=== PATIENT | female | born 1940 | race Caucasian/White ===

== ENCOUNTER 2023-04-25 13:10 | Outpatient (AMB) | payer MEDICARE, OTHER, SELFPAY ==
--- NOTE | 2023-04-25 13:12 | MHC.OFFVIS ---
Intake Vital Signs 04/25/23 13:13 Height 5 ft 2 in BMI Reason not done Patient refused/unable BP 128/76 Blood Pressure Location Rt brachial Position Sitting Pulse 75 Pulse Source Pulse Oximeter Temp 97.2 F Temp Source Skin Pulse Oximetry (%) 97 Comment stated weight is 170 lbs Intake Visit Reasons: inflammatory polyarthropathy Intake Note: New pt presents today for consult. Request renewal on prednisone 5mg Bosom Presser Required: No Accompanied by: Self / Same As Patient Allergies Penicillins Allergy (Severe, Verified 04/25/23 13:14) Anaphylaxis streptomycin Adverse Reaction (Verified 04/25/23 13:14) Rash Medication List - Last Reconciled 04/25/23 by Seven West MD bupropion HCl 300 mg PO DAILY citalopram 20 mg PO DAILY fluticasone propion-salmeterol 250-50 mcg/dose (Advair Diskus) 1 ea inhalation BID gabapentin 600 mg PO BEDTIME gabapentin 100 mg PO BEDTIME hydroxychloroquine 200 mg PO DAILY oxybutynin chloride ER 10 mg PO DAILY prednisone 5 mg PO DAILY HPI HPI Comments History of Present Illness Details This is in 82-year-old female with PMR/seronegative RA/GCA who presents as a new patient. Her previous sole tacker left the practice. She is currently on 5 mg of prednisone and hydroxychloroquine 1 tab daily. Patient stated that she has been having fatigue over the years but it has been worsening over the last 3 years. She was evaluated by an health and safety director 3 months ago and was told no change in medication is needed but was given instructions for stress dose steroids. She was recently evaluated by her PCP and numerous blood tests were ordered, according to patient it was all normal. Patient states that her main complaint is fatigue. Associated with morning stiffness lasting 90 minutes. She gets some pain in her hands, especially her wrists. Gets intermittent headaches. No vision change. Per Dr. 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 I do not have records of initial episode, but as I recall, she kept having recurrent symptoms and required much longer than usual prednisone taper.? At 1 point we tried methotrexate and tried Enbrel as a steroid sparing agents.?? She also has more recently had PMR like symptoms that have been steroid responsive.? She was on low doses of prednisone for a very long period of time.?? She tapered off prednisone entirely for about a year, but then May 2017 had a fairly abrupt onset of inflammatory for arthritis with hand and wrist pain and swelling with a component of acute carpal tunnel syndrome.?? Had prednisone and started leflunomide and seemed to do much better.?? Trouble tolerating leflunomide.? Plaquenil added back in December of 2018 When I saw her in 2018 she was complaining about 2 months of mostly left temporal headache and scalp sensitivity.? Gets sharp pain, then dull ache.? This was very reminiscent of onset of GCA years ago.? Also developed proximal symptoms with more than 1 hour of morning stiffness around hips and shoulder.? This too is very reminiscent of symptoms weight back at onset of her disease.? With recurring symptoms I thought we should consider adding Actemra and we went through the prior authorization process.? However she has been able to rapidly taper her prednisone to current 5 mg daily with full resolution of symptoms Had DEXA scan.? Hip-2.6.? Prior treatment with Fosamax for 2-3 years when on high doses of prednisone.? No Fosamax since 2010.?? Restart alendronate with ask 2019? She had successful ankle replacement.? Fully active [facility] Medical History (Updated 04/25/23 @ 13:58 by Seven West MD) Tendinitis Osteochondropathy Osteoporosis Polymyalgia rheumatica Degenerative joint disease of ankle Inflammatory polyarthropathy Rheumatoid arthritis Asthma Giant cell arteritis Iatrogenic adrenal insufficiency Surgical History History of ankle surgery Hx of appendectomy Hx of tubal ligation Hx of cholecystectomy H/O shoulder replacement History of bunionectomy Family History Mother Chronic obstructive lung disease, type A Father H/O failure to thrive syndrome Social History Household Members: Spouse Alcohol intake: current Alcohol intake frequency: a few times a month Patient Tobacco Use Status: Never used Tobacco Current occupational status: 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Const Reports fatigue ENT Reports dry mouth Card Reports dyspnea Resp Reports dyspnea GI Reports diarrhea Musc Reports arthralgias and Reports stiffness Skin/Breast Reports unusual bruising Psych Reports anxiety and Reports depression Endo Reports fatigue Physical Exam Vital Signs: Last Vital Signs Temp 97.2 F 04/25/23 13:13 Pulse 75 04/25/23 13:13 BP 128/76 04/25/23 13:13 Pulse Ox 97 04/25/23 13:13 Const General: cooperative, healthy appearing and comfortable Nutritional Appearance: overweight Orientation/consciousness: patient oriented x3 Limitations: no limitations HEENT Head: Yes normocephalic and Yes atraumatic Mouth: moist mucous membranes Resp Effort & Inspection: normal respiratory effort and able to speak in complete sentences Auscultation: clear to auscultation bilaterally Cardio Rate: regular rate Rhythm: regular rhythm Skin Other: Dry skin Neuro General: patient oriented x3 Extrem Other: Osteoarthritic changes of both hands with no active synovitis Right 1st CMC joint tenderness Normal range of motion of both elbows, shoulders without pain Normal range of motion of both hips without pain Negative straight leg raise test bilaterally Left trochanteric bursa area tenderness with negative Marlen's test Proximal muscle strength 5/5 all 4 extremities Results Reviewed Results Reviewed: Had DEXA scan.? Hip-2.6.? Prior treatment with Fosamax for 2-3 years when on high doses of prednisone.? No Fosamax since 2010.?? Restart alendronate? 2019? She had successful ankle replacement.? Fully active Labs 02/2022? ESR/CRP normal DEXA 05/20? Her T-score -0.8 at the forearm with no prior to compare? Her T-score at the right femoral neck was-2.3 and in 2019 was-2.6? Her FRAX data was not calculated Assessment & Plan Assessment & Plan (1) Polymyalgia rheumatica: Code(s): M35.3 - Polymyalgia rheumatica Plan: This is an 82-year-old female with GCA/PMR and seronegative rheumatoid arthritis who presents as a new patient. Her previous sole tacker left the practice. Per Dr. Toth patient's GCA was diagnosed clinically. Patient mentions that she had a left temporal artery biopsy and it was positive for GCA. Upon evaluation today I do not see any signs of active disease. Patient mentioned that she had numerous blood tests recently by her PCP. Will request records. For now continue with prednisone 5 mg daily and Plaquenil 200 mg daily Follow-up in 3 months (2) Iatrogenic adrenal insufficiency: Code(s): E27.49 - Other adrenocortical insufficiency Plan: Per patient was recently evaluated by an health and safety director and no change in prednisone dose was done, she was given instructions for stress steroid dosing however. Will request records (3) Osteoporosis: Code(s): M81.0 - Age-related osteoporosis without current pathological fracture Qualifiers: Osteoporosis type: age-related Presence of current pathological fracture: without current pathological fracture Qualified Code(s): M81.0 - Age-related osteoporosis without current pathological fracture Plan: DEXA 05/20? Her T-score -0.8 at the forearm with no prior to compare? Her T-score at the right femoral neck was-2.3 and in 2019 was-2.6? Her FRAX data was not calculated (4) Trochanteric bursitis, left hip: Code(s): M70.62 - Trochanteric bursitis, left hip Plan: Will consider injection next visit Plan I spent 46 minutes reviewing patient's chart, evaluating patient, counseling patient and documenting in the chart Coding Level of Care Code New Pt Level 4 (15054) Diagnoses Polymyalgia rheumatica M35.3 Iatrogenic adrenal insufficiency E27.49 Age-related osteoporosis without current pathological fracture M81.0 Osteoporosis type: age-related Presence of current pathological fracture: without current pathological fracture Trochanteric bursitis, left hip M70.62
[2023-04-25 13:13] VITALS: BP 128/76; PULSE 75; TEMP 36.2; O2SAT 97
== END 2023-04-25 13:47 | disposition home or self-care (01) ==
PROVIDERS: PCP Family Medicine; Visit Provider Student in an Organized Health Care Education/Training Program
DX: M35.3 Polymyalgia rheumatica (principal); E27.49 Other adrenocortical insufficiency; M81.0 Age-related osteoporosis without current pathological fracture; M70.62 Trochanteric bursitis, left hip
CPT/HCPCS: 99204

== ENCOUNTER → 2023-04-25 13:10 | Outpatient (BNVA) | payer MEDICARE, OTHER, SELFPAY | PROVIDERS: PCP Family Medicine; Visit Provider Student in an Organized Health Care Education/Training Program ==

== ENCOUNTER 2023-07-26 13:26 | Outpatient (AMB) | payer MEDICARE, OTHER, SELFPAY ==
--- NOTE | 2023-07-26 13:29 | MHC.OFFVIS ---
Intake Vital Signs 07/26/23 13:30 Height 5 ft 2 in BMI Reason not done Patient refused/unable BP 122/74 Blood Pressure Location Rt brachial Position Sitting Pulse 78 Pulse Source Pulse Oximeter Temp 97 F Temp Source Skin Comment 170lb at home this morning Intake Visit Reasons: PMR Intake Note: Pt last seen 04/25/23 presents today for follow up. c/o left hip pain Bond Underwriter Required: No Accompanied by: Spouse Allergies Penicillins Allergy (Severe, Verified 07/26/23 13:40) Anaphylaxis streptomycin Adverse Reaction (Verified 07/26/23 13:40) Rash Medication List - Last Reconciled 07/26/23 by Seven West MD bupropion HCl 300 mg PO DAILY citalopram 20 mg PO DAILY fluticasone propion-salmeterol 250-50 mcg/dose (Advair Diskus) 1 ea inhalation BID gabapentin 600 mg PO BEDTIME gabapentin 100 mg PO BEDTIME hydroxychloroquine 200 mg PO DAILY oxybutynin chloride ER 10 mg PO DAILY prednisone 5 mg PO DAILY HPI HPI Comments History of Present Illness Details This is in 82-year-old female with PMR/seronegative RA/GCA who presents for follow-up. On prednisone 5 mg daily and hydroxychloroquine 200 mg daily. She states that she has been doing well until early May 31 her fell and had subarachnoid hemorrhage and multiple broken ribs. He was admitted to the hospital. During that time patient would have long walks and the parking lot to visit him at the hospital. Since then she has been having left lower back and left buttock pain radiating towards her left lower extremity. Worse with walking, standing up improving with sitting down and slightly flexing her knees and spine. She states that her symptoms are now starting to involve her right buttock and right lower extremity. She states that she was evaluated by an orthopedist. X-rays were done and it showed arthritis. Medrol Dosepak was tried and it was not helpful. Tizanidine was also tried, not helpful. Heating pad helps. She was referred to a production service manager who ordered physical therapy. She will not start physical therapy until the beginning of August. She just bought a walker today. Per Dr. 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 I do not have records of initial episode, but as I recall, she kept having recurrent symptoms and required much longer than usual prednisone taper.? At 1 point we tried methotrexate and tried Enbrel as a steroid sparing agents.?? She also has more recently had PMR like symptoms that have been steroid responsive.? She was on low doses of prednisone for a very long period of time.?? She tapered off prednisone entirely for about a year, but then May 2017 had a fairly abrupt onset of inflammatory for arthritis with hand and wrist pain and swelling with a component of acute carpal tunnel syndrome.?? Had prednisone and started leflunomide and seemed to do much better.?? Trouble tolerating leflunomide.? Plaquenil added back in December of 2018 When I saw her in 2018 she was complaining about 2 months of mostly left temporal headache and scalp sensitivity.? Gets sharp pain, then dull ache.? This was very reminiscent of onset of GCA years ago.? Also developed proximal symptoms with more than 1 hour of morning stiffness around hips and shoulder.? This too is very reminiscent of symptoms weight back at onset of her disease.? With recurring symptoms I thought we should consider adding Actemra and we went through the prior authorization process.? However she has been able to rapidly taper her prednisone to current 5 mg daily with full resolution of symptoms Had DEXA scan.? Hip-2.6.? Prior treatment with Fosamax for 2-3 years when on high doses of prednisone.? No Fosamax since 2010.?? Restart alendronate with ask 2019? She had successful ankle replacement.? Fully active [facility] Medical History Tendinitis Osteochondropathy Osteoporosis Polymyalgia rheumatica Degenerative joint disease of ankle Inflammatory polyarthropathy Rheumatoid arthritis Asthma Giant cell arteritis Iatrogenic adrenal insufficiency Surgical History History of ankle surgery Hx of appendectomy Hx of tubal ligation Hx of cholecystectomy H/O shoulder replacement History of bunionectomy Family History Mother Chronic obstructive lung disease, type A Father H/O failure to thrive syndrome Social History Household Members: Spouse Alcohol intake: current Alcohol intake frequency: a few times a month Patient Tobacco Use Status: Never used Tobacco Current occupational status: 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[facility] [place] Reports back pain, Reports arthralgias, Denies joint swelling, Reports limited range of motion and Reports radiating pain into limb Physical Exam Vital Signs: Last Vital Signs Temp 97 F 07/26/23 13:30 Pulse 78 07/26/23 13:30 BP 122/74 07/26/23 13:30 Const General: cooperative, healthy appearing and comfortable Nutritional Appearance: overweight Orientation/consciousness: patient oriented x3 Limitations: no limitations HEENT Head: Yes normocephalic and Yes atraumatic Mouth: moist mucous membranes Resp Effort & Inspection: normal respiratory effort and able to speak in complete sentences Auscultation: clear to auscultation bilaterally Cardio Rate: regular rate Rhythm: regular rhythm Skin Other: Dry skin Neuro General: patient oriented x3 Extrem Other: Osteoarthritic changes of both hands with no active synovitis Right 1st CMC joint tenderness Normal range of motion of both elbows, shoulders without pain Normal range of motion of both hips without pain Bilateral buttock tenderness to palpation and positive straight leg raise test Proximal muscle strength 5/5 all 4 extremities Results Reviewed Results Reviewed: Had DEXA scan.? Hip-2.6.? Prior treatment with Fosamax for 2-3 years when on high doses of prednisone.? No Fosamax since 2010.?? Restart alendronate? 2019? She had successful ankle replacement.? Fully active Labs 02/2022? ESR/CRP normal DEXA 05/20? Her T-score -0.8 at the forearm with no prior to compare? Her T-score at the right femoral neck was-2.3 and in 2019 was-2.6? Her FRAX data was not calculated Assessment & Plan Assessment & Plan (1) Polymyalgia rheumatica: Code(s): M35.3 - Polymyalgia rheumatica Plan: This is an 82-year-old female with GCA/PMR and seronegative rheumatoid arthritis who presents for follow-up. Her previous coat examiner left the practice. Per Dr. Toth patient's GCA was diagnosed clinically. Patient mentions that she had a left temporal artery biopsy and it was positive for GCA. Upon evaluation today I do not see any signs of active disease. There is no synovitis on exam. Her symptoms are stable on prednisone 5 mg daily and Plaquenil 200 mg daily. Most recent blood work back in March showed normal inflammatory markers. For now continue with prednisone 5 mg daily and Plaquenil 200 mg daily Follow-up in 4 months (2) Iatrogenic adrenal insufficiency: Code(s): E27.49 - Other adrenocortical insufficiency Plan: Per patient was evaluated by an radio news anchor and no change in prednisone dose was done, she was given instructions for stress steroid dosing however. Will request records (3) Osteoporosis: Code(s): M81.0 - Age-related osteoporosis without current pathological fracture Qualifiers: Osteoporosis type: age-related Presence of current pathological fracture: without current pathological fracture Qualified Code(s): M81.0 - Age-related osteoporosis without current pathological fracture Plan: DEXA 05/20? Her T-score -0.8 at the forearm with no prior to compare? Her T-score at the right femoral neck was-2.3 and in 2019 was-2.6? Her FRAX data was not calculated Will check a bone density scan (4) Sciatica: Code(s): M54.30 - Sciatica, unspecified side Qualifiers: Laterality: bilateral Qualified Code(s): M54.31 - Sciatica, right side; M54.32 - Sciatica, left side Plan: Bilateral sciatica symptoms associated with some features of neurogenic claudication. Patient was evaluated by PM&R and Physical therapy was ordered. Medrol Dosepak was not helpful , she is scheduled for PT early August Advised patient to try using [id number] Salonpas patch Plan I spent 26 minutes reviewing patient's chart, evaluating patient, counseling patient and documenting in the chart Orders: Orders XR DEXA axial skeleton Today M81.0 - Age-related osteoporosis without current pathological fracture Coding Level of Care Code Est Pt Level 4 (91425) Diagnoses Polymyalgia rheumatica M35.3 Iatrogenic adrenal insufficiency E27.49 Age-related osteoporosis without current pathological fracture M81.0 Osteoporosis type: age-related Presence of current pathological fracture: without current pathological fracture Bilateral sciatica M54.31; M54.32 Laterality: bilateral
[2023-07-26 13:30] VITALS: BP 122/74; PULSE 78; TEMP 36.1
== END 2023-07-26 14:10 | disposition home or self-care (01) ==
LOC: HO.RHE 13:26
PROVIDERS: PCP Family Medicine; Visit Provider Student in an Organized Health Care Education/Training Program
DX: M35.3 Polymyalgia rheumatica (principal); E27.49 Other adrenocortical insufficiency; M81.0 Age-related osteoporosis without current pathological fracture; M54.31 Sciatica, right side; M54.32 Sciatica, left side
CPT/HCPCS: 99214

== ENCOUNTER → 2023-07-26 13:26 | Outpatient (BNVA) | payer MEDICARE, OTHER, SELFPAY | PROVIDERS: PCP Family Medicine; Visit Provider Student in an Organized Health Care Education/Training Program | DX: M35.3 Polymyalgia rheumatica (principal); M81.0 Age-related osteoporosis without current pathological fracture; M54.31 Sciatica, right side; M54.32 Sciatica, left side; E27.49 Other adrenocortical insufficiency | CPT/HCPCS: 99212 ==

== ENCOUNTER 2023-11-27 13:10 | Outpatient (AMB) | payer MEDICARE, OTHER, SELFPAY ==
--- NOTE | 2023-11-27 13:13 | A.OFFVIS_ITS ---
Vital Signs 11/27/23 13:14 Height 5 ft 2 in Weight 179 lb 7.3 oz BMI 32.8 BP 112/70 Blood Pressure Location Rt brachial Position Sitting Pulse 74 Pulse Source Pulse Oximeter Pulse Oximetry (%) 96 Oxygen Delivery Method Room Air Intake Visit Reasons: PMR Intake Note: Patient last seen 07/26/23 presents today for follow up. DEXA booked in January. Reports she is a little sore as expected she has been doing some gardening. Acquisition Advisor Required: No Accompanied by: Self / Same As Patient Allergies Penicillins Allergy (Severe, Verified 11/27/23 13:21) Anaphylaxis streptomycin Adverse Reaction (Verified 11/27/23 13:21) Rash Medication List - Last Reconciled 11/27/23 by Seven West MD albuterol sulfate 90 mcg/actuation inhalation bupropion HCl XL 300 mg PO DAILY citalopram 20 mg PO DAILY fluticasone propion-salmeterol 250-50 mcg/dose (Advair Diskus) 1 ea inhalation BID gabapentin 600 mg PO BEDTIME gabapentin 100 mg PO BEDTIME hydroxychloroquine 200 mg PO DAILY oxybutynin chloride ER 10 mg PO DAILY prednisone 5 mg PO DAILY tizanidine 2 mg PO BID HPI Comments Details: This is in 83-year-old female with PMR/seronegative RA/GCA who presents for follow-up. On prednisone 5 mg daily and hydroxychloroquine 200 mg daily. She states that she has been doing fairly well. She had an episode of sciatica started in May that slowly improved over a few months. It improved with physical therapy, acupuncture, exercises. She was evaluated by a historic clothing and costume maker in [place] but nothing could be done, as her insurance is in [place]. She states that she continues to have bilateral lower back pain low back and buttock pain. Worse with activity. She has been gardening regularly. Does not have any other symptoms. Per Dr. 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 I do not have records of initial episode, but as I recall, she kept having recurrent symptoms and required much longer than usual prednisone taper.? At 1 point we tried methotrexate and tried Enbrel as a steroid sparing agents.?? She also has more recently had PMR like symptoms that have been steroid responsive.? She was on low doses of prednisone for a very long period of time.?? She tapered off prednisone entirely for about a year, but then May 2017 had a fairly abrupt onset of inflammatory for arthritis with hand and wrist pain and swelling with a component of acute carpal tunnel syndrome.?? Had prednisone and started leflunomide and seemed to do much better.?? Trouble tolerating leflunomide.? Plaquenil added back in December of 2018 When I saw her in 2019 she was complaining about 2 months of mostly left temporal headache and scalp sensitivity.? Gets sharp pain, then dull ache.? This was very reminiscent of onset of GCA years ago.? Also developed proximal symptoms with more than 1 hour of morning stiffness around hips and shoulder.? This too is very reminiscent of symptoms weight back at onset of her disease.? With recurring symptoms I thought we should consider adding Actemra and we went through the prior authorization process.? However she has been able to rapidly taper her prednisone to current 5 mg daily with full resolution of symptoms Had DEXA scan.? Hip-2.6.? Prior treatment with Fosamax for 2-3 years when on high doses of prednisone.? No Fosamax since 2010.?? Restart alendronate with ask 2018? She had successful ankle replacement.? Fully active [facility] Medical History Tendinitis Osteochondropathy Osteoporosis Polymyalgia rheumatica Degenerative joint disease of ankle Inflammatory polyarthropathy Rheumatoid arthritis Asthma Giant cell arteritis Iatrogenic adrenal insufficiency Surgical History History of ankle surgery Hx of appendectomy Hx of tubal ligation Hx of cholecystectomy H/O shoulder replacement History of bunionectomy Family History Mother Chronic obstructive lung disease, type A Father H/O failure to thrive syndrome Social History Household Members: Spouse Alcohol intake: current Alcohol intake frequency: a few times a month Patient Tobacco Use Status: Never used Tobacco Current occupational status: 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[employer] [place] Reports back pain, Denies joint swelling and Reports limited range of motion Physical Exam Vital Signs: Last Vital Signs Pulse 74 11/27/23 13:14 BP 112/70 11/27/23 13:14 Pulse Ox 96 11/27/23 13:14 Oxygen Delivery Method Room Air 11/27/23 13:14 BMI result Body Mass Index 32.8 Const General: cooperative, healthy appearing and comfortable Nutritional Appearance: overweight Orientation/consciousness: patient oriented x3 Limitations: no limitations HEENT Head: Yes normocephalic and Yes atraumatic Mouth: moist mucous membranes Resp Effort & Inspection: normal respiratory effort and able to speak in complete sentences Auscultation: clear to auscultation bilaterally Cardio Rate: regular rate Rhythm: regular rhythm Skin Other: Dry skin Neuro General: patient oriented x3 Extrem Other: Osteoarthritic changes of both hands with no active synovitis Right 1st CMC joint tenderness Normal range of motion of both elbows, shoulders without pain Normal range of motion of both hips without pain Bilateral lower lumbar paraspinal muscle tenderness Bilateral buttock tenderness to palpation Negative straight leg raise test bilaterally Proximal muscle strength 5/5 all 4 extremities Results Reviewed Results Reviewed: Had DEXA scan.? Hip-2.6.? Prior treatment with Fosamax for 2-3 years when on high doses of prednisone.? No Fosamax since 2010.?? Restart alendronate? 2019? She had successful ankle replacement.? Fully active Labs 02/2022? ESR/CRP normal DEXA 05/20? Her T-score -0.8 at the forearm with no prior to compare? Her T-score at the right femoral neck was-2.3 and in 2019 was-2.6? Her FRAX data was not calculated Assessment & Plan Assessment & Plan (1) Polymyalgia rheumatica: Code(s): M35.3 - Polymyalgia rheumatica Category: Medical Plan: This is an 82-year-old female with GCA/PMR and seronegative rheumatoid arthritis who presents for follow-up. Per Dr. Toth patient's GCA was diagnosed clinically. Upon evaluation today I do not see any signs of active disease. There is no synovitis on exam. Her symptoms are stable on prednisone 5 mg daily and Plaquenil 200 mg daily. For now continue with prednisone 5 mg daily and Plaquenil 200 mg daily . She stated that she had blood work done recently with her PCP. Will attempt to retrieve PI Follow-up in 6 months (2) Iatrogenic adrenal insufficiency: Code(s): E27.49 - Other adrenocortical insufficiency Category: Medical Plan: Per patient was evaluated by an data collection technician and no change in prednisone dose was done, she was given instructions for stress steroid dosing however. (3) Osteoporosis: Code(s): M81.0 - Age-related osteoporosis without current pathological fracture Category: Medical Qualifiers: Osteoporosis type: age-related Presence of current pathological fracture: without current pathological fracture Qualified Code(s): M81.0 - Age- related osteoporosis without current pathological fracture Plan: DEXA 05/20? Her T-score -0.8 at the forearm with no prior to compare? Her T-score at the right femoral neck was-2.3 and in 2019 was-2.6? Her FRAX data was not calculated Will check a bone density scan (4) Lumbar degenerative disc disease: Code(s): M51.36 - Other intervertebral disc degeneration, lumbar region Category: Medical Plan: Patient had episode of sciatica over the fall and winter which improved with physical therapy acupuncture and exercises. She continues to have milder symptoms, intermittent. Lower back pain. Symptoms are mild however. Patient not interested in pain management evaluation. (5) Long-term use of hydroxychloroquine: Code(s): Z79.899 - Other rodent exterminator (current) drug therapy Category: Medical Plan: Patient follows up regularly with Ophthalmology. I can not tell whether patient had hydroxychloroquine screening last visit. Advised patient to follow-up with her edge glue machine tender. Send me most recent office note Plan I spent 26 minutes reviewing patient's chart, evaluating patient, counseling patient and documenting in the chart Coding Level of Care Code Est Pt Level 4 (43662) Diagnoses Polymyalgia rheumatica M35.3 Iatrogenic adrenal insufficiency E27.49 Age-related osteoporosis without current pathological fracture M81.0 Osteoporosis type: age-related Presence of current pathological fracture: without current pathological fracture Lumbar degenerative disc disease M51.36 Long-term use of hydroxychloroquine Z79.899
[2023-11-27 13:14] VITALS: BP 112/70; PULSE 74; O2SAT 96; BMI 32.8
== END 2023-11-27 13:47 | disposition home or self-care (01) ==
PROVIDERS: PCP Family Medicine; Visit Provider Student in an Organized Health Care Education/Training Program
DX: M35.3 Polymyalgia rheumatica (principal); E27.49 Other adrenocortical insufficiency; M81.0 Age-related osteoporosis without current pathological fracture; M51.36 Other intervertebral disc degeneration, lumbar region; Z79.899 Other long term (current) drug therapy
CPT/HCPCS: 99214

== ENCOUNTER → 2023-11-27 13:10 | Outpatient (BNVA) | payer MEDICARE, OTHER, SELFPAY | PROVIDERS: PCP Family Medicine; Visit Provider Student in an Organized Health Care Education/Training Program | DX: M35.3 Polymyalgia rheumatica (principal); M81.0 Age-related osteoporosis without current pathological fracture; M51.36 Other intervertebral disc degeneration, lumbar region; E27.49 Other adrenocortical insufficiency; Z79.899 Other long term (current) drug therapy | CPT/HCPCS: 99212 ==

== ENCOUNTER 2024-05-23 10:25 | Outpatient (AMB) | payer MEDICARE, OTHER, SELFPAY ==
[2024-05-23 10:35] VITALS: BP 118/62; PULSE 65; O2SAT 97; BMI 31.8
--- NOTE | 2024-05-23 10:35 | A.OFFVIS_ITS ---
Vital Signs 05/23/24 10:35 Height 5 ft 2 in Weight 174 lb BMI 31.8 BP 118/62 Blood Pressure Location Lt brachial Position Sitting Pulse 65 Pulse Source Pulse Oximeter Pulse Oximetry (%) 97 Oxygen Delivery Method Room Air Intake Visit Reasons: PMR/CM Intake Note: Patient last seen by Doctor Seven West on 11/27/23. Presents today for PMR follow up.? Allergies Penicillins Allergy (Severe, Verified 05/23/24 10:38) Anaphylaxis streptomycin Adverse Reaction (Verified 05/23/24 10:38) Rash Medication List - Last Reconciled 05/23/24 by Seven West MD albuterol sulfate 90 mcg/actuation inhalation bupropion HCl XL 300 mg PO DAILY citalopram 20 mg PO DAILY fluticasone propion-salmeterol 250-50 mcg/dose (Advair Diskus) 1 ea inhalation BID gabapentin 600 mg PO BEDTIME gabapentin 100 mg PO BEDTIME hydroxychloroquine 200 mg PO DAILY oxybutynin chloride ER 10 mg PO DAILY prednisone 5 mg PO DAILY tizanidine 2 mg PO BID HPI Comments Details: This is in 83-year-old female with PMR/seronegative RA/GCA who presents for follow-up. On prednisone 5 mg daily and hydroxychloroquine 200 mg daily. She states that she has been doing fairly well. She states that her sciatica has b een acting up recently. She has tried physical therapy and acupuncture without much improvement. She recently saw a chiropractor and had chiropractic adjustments with significant relief. She will be going back. She offers no complaints today. She had her bone density scan done last month. She states that she continues to have bilateral lower back pain low back and buttock pain. Worse with activity. She has been gardening regularly. Does not have any other symptoms. Per Dr. 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 I do not have records of initial episode, but as I recall, she kept having recurrent symptoms and required much longer than usual prednisone taper.? At 1 point we tried methotrexate and tried Enbrel as a steroid sparing agents.?? She also has more recently had PMR like symptoms that have been steroid responsive.? She was on low doses of prednisone for a very long period of time.?? She tapered off prednisone entirely for about a year, but then May 2017 had a fairly abrupt onset of inflammatory for arthritis with hand and wrist pain and swelling with a component of acute carpal tunnel syndrome.?? Had prednisone and started leflunomide and seemed to do much better.?? Trouble tolerating leflunomide.? Plaquenil added back in December of 2018 When I saw her in 2019 she was complaining about 2 months of mostly left temporal headache and scalp sensitivity.? Gets sharp pain, then dull ache.? This was very reminiscent of onset of GCA years ago.? Also developed proximal symptoms with more than 1 hour of morning stiffness around hips and shoulder.? This too is very reminiscent of symptoms weight back at onset of her disease.? With recurring symptoms I thought we should consider adding Actemra and we went through the prior authorization process.? However she has been able to rapidly taper her prednisone to current 5 mg daily with full resolution of symptoms Had DEXA scan.? Hip-2.6.? Prior treatment with Fosamax for 2-3 years when on high doses of prednisone.? No Fosamax since 2010.?? Restart alendronate with ask 2018? She had successful ankle replacement.? Fully active [facility] Medical History Tendinitis Osteochondropathy Osteoporosis Polymyalgia rheumatica Degenerative joint disease of ankle Inflammatory polyarthropathy Rheumatoid arthritis Asthma Giant cell arteritis Iatrogenic adrenal insufficiency Surgical History History of ankle surgery Hx of appendectomy Hx of tubal ligation Hx of cholecystectomy H/O shoulder replacement History of bunionectomy Family History Mother Chronic obstructive lung disease, type A Father H/O failure to thrive syndrome Social History Household Members: Spouse Alcohol intake: current Alcohol intake frequency: a few times a month Patient Tobacco Use Status: Never used Tobacco Current occupational status: 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[place] Reports back pain and Denies joint swelling Physical Exam Vital Signs: Last Vital Signs Pulse 65 05/23/24 10:35 BP 118/62 10/24/24 10:35 Pulse Ox 97 05/23/24 10:35 Oxygen Delivery Method Room Air 05/23/24 10:35 BMI result Body Mass Index 31.8 Const General: cooperative, healthy appearing and comfortable Nutritional Appearance: overweight Orientation/consciousness: patient oriented x3 Limitations: no limitations HEENT Head: Yes normocephalic and Yes atraumatic Mouth: moist mucous membranes Resp Effort & Inspection: normal respiratory effort and able to speak in complete sentences Auscultation: clear to auscultation bilaterally Cardio Rate: regular rate Rhythm: regular rhythm Skin Other: Dry skin Neuro General: patient oriented x3 Extrem Other: Osteoarthritic changes of both hands with no active synovitis Right 1st CMC joint tenderness Normal range of motion of both elbows, shoulders without pain Normal range of motion of both hips without pain Bilateral buttock tenderness to palpation Negative straight leg raise test bilaterally Proximal muscle strength 5/5 all 4 extremities Results Reviewed Results Reviewed: Had DEXA scan.? Hip-2.6.? Prior treatment with Fosamax for 2-3 years when on high doses of prednisone.? No Fosamax since 2010.?? Restart alendronate? 2019? She had successful ankle replacement.? Fully active Labs 02/2022? ESR/CRP normal DEXA 05/20? Her T-score -0.8 at the forearm with no prior to compare? Her T-score at the right femoral neck was-2.3 and in 2019 was-2.6? Her FRAX data was not calculated Assessment & Plan Assessment & Plan (1) Polymyalgia rheumatica: Code(s): M35.3 - Polymyalgia rheumatica Category: Medical Plan: This is an 83-year-old female with GCA/PMR and seronegative rheumatoid arthritis who presents for follow-up. Per Dr. Toth patient's GCA was diagnosed clinically. Upon evaluation today I do not see any signs of active disease. There is no synovitis on exam. Her symptoms are stable on prednisone 5 mg daily and Plaquenil 200 mg daily. For now continue with prednisone 5 mg daily and Plaquenil 200 mg daily. Labs before next visit in 6 months (2) Iatrogenic adrenal insufficiency: Code(s): E27.49 - Other adrenocortical insufficiency Category: Medical Plan: Per patient was evaluated by an veterinary microbiologist and no change in prednisone dose was done, she was given instructions for stress steroid dosing however. (3) Osteoporosis: Code(s): M81.0 - Age-related osteoporosis without current pathological fracture Category: Medical Qualifiers: Osteoporosis type: age-related Presence of current pathological fracture: without current pathological fracture Qualified Code(s): M81.0 - Age- related osteoporosis without current pathological fracture Plan: DEXA 05/20? Her T-score -0.8 at the forearm with no prior to compare? Her T-score at the right femoral neck was-2.3 and in 2019 was-2.6? Her FRAX data was not calculated Patient had another DEXA scan last month. Unfortunately it was not sent to our office. It is not available for review (4) Long-term use of hydroxychloroquine: Comment: Eye exam 06/2023 Code(s): Z79.899 - Other moth exterminator (current) drug therapy Category: Medical Plan: Follow-up regularly with communication equipment mechanic Plan I spent 26 minutes reviewing patient's chart, evaluating patient, ordering diagnostic workup, counseling patient and documenting in the chart Orders: Orders Complete Blood Count Auto Diff 6 Months M35.3 - Polymyalgia rheumatica, Z79.899 - Other mcc (current) drug therapy Comprehensive Met. Panel 6 Months M35.3 - Polymyalgia rheumatica, Z79.899 - Other moth exterminator (current) drug therapy C Reactive Protein 6 Months M35.3 - Polymyalgia rheumatica, Z79.899 - Other moth exterminator (current) drug therapy Erythrocyte Sedimentation Rate 6 Months M35.3 - Polymyalgia rheumatica, Z79.899 - Other moth exterminator (current) drug therapy Vitamin D 25-OH (D2 and D3) 6 Months R79.89 - Other specified abnormal findings of blood chemistry Coding Level of Care Code Est Pt Level 4 (84665) Complex EM visit Add On G2211 Diagnoses Polymyalgia rheumatica M35.3 Iatrogenic adrenal insufficiency E27.49 Age-related osteoporosis without current pathological fracture M81.0 Osteoporosis type: age-related Presence of current pathological fracture: without current pathological fracture Long-term use of hydroxychloroquine Z79.899
== END 2024-05-23 11:05 | disposition home or self-care (01) ==
PROVIDERS: PCP Family Medicine; Visit Provider Student in an Organized Health Care Education/Training Program
DX: M35.3 Polymyalgia rheumatica (principal); E27.49 Other adrenocortical insufficiency; M81.0 Age-related osteoporosis without current pathological fracture; Z79.899 Other long term (current) drug therapy
CPT/HCPCS: 99214; G2211

== ENCOUNTER → 2024-05-23 10:25 | Outpatient (BNVA) | payer MEDICARE, OTHER, SELFPAY | PROVIDERS: PCP Family Medicine; Visit Provider Student in an Organized Health Care Education/Training Program | DX: M35.3 Polymyalgia rheumatica (principal); E27.49 Other adrenocortical insufficiency; M81.0 Age-related osteoporosis without current pathological fracture; R79.89 Other specified abnormal findings of blood chemistry; Z79.52 Long term (current) use of systemic steroids; Z79.899 Other long term (current) drug therapy | CPT/HCPCS: 99212 ==

== ENCOUNTER 2024-11-21 10:52 | Outpatient (AMB) | payer MEDICARE, OTHER, SELFPAY ==
--- NOTE | 2024-11-21 11:12 | A.OFFVIS_ITS ---
Vital Signs 11/21/24 11:15 Height 5 ft 2 in Weight 171 lb 11.841 oz BMI 31.4 BP 134/80 Blood Pressure Location Lt brachial Position Sitting Pulse 64 Pulse Source Pulse Oximeter Pulse Oximetry (%) 98 Oxygen Delivery Method Room Air Intake Visit Reasons: PMR/RA Intake Note: Patient presents for PMR/RA follow up. Allergies Penicillins Allergy (Severe, Verified 11/21/24 11:14) Anaphylaxis streptomycin Adverse Reaction (Verified 11/21/24 11:14) Rash Medication List - Last Reconciled 11/21/24 by Gilma Mitchell MD albuterol sulfate 90 mcg/actuation inhalation bupropion HCl XL 300 mg PO DAILY citalopram 20 mg PO DAILY fluticasone propion-salmeterol 250-50 mcg/dose (Advair Diskus) 1 ea inhalation BID gabapentin 600 mg PO BEDTIME gabapentin 100 mg PO BEDTIME hydroxychloroquine 200 mg PO DAILY oxybutynin chloride ER 10 mg PO DAILY prednisone 5 mg PO DAILY tizanidine 2 mg PO BID HPI Comments Details: Patient is an 84-year-old female with iatrogenic adrenal insufficiency, ost eoporosis, lumbar degenerative disc disease and polymyalgia rheumatica/seronegative RA/GCA here today for follow up Interval History: Patient last seen 05/23/[address] West. At that time she was following up for her PMR/seronegative RA/non biopsy-proven GCA on prednisolone 5 mg and hydroxychloroquine 200 mg daily. She reported that she was doing fairly well despite happen her sciatica acting up. 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 I do not have records of initial episode, but as I recall, she kept having recurrent symptoms and required much longer than usual prednisone taper.? At 1 point we tried methotrexate and tried Enbrel as a steroid sparing agents.?? She also has more recently had PMR like symptoms that have been steroid responsive.? She was on low doses of prednisone for a very long period of time.?? She tapered off prednisone entirely for about a year, but then May 2017 had a fairly abrupt onset of inflammatory for arthritis with hand and wrist pain and swelling with a component of acute carpal tunnel syndrome.?? Had prednisone and started leflunomide and seemed to do much better.?? Trouble tolerating leflunomide.? Plaquenil added back in December of 2018 When I saw her in 2019 she was complaining about 2 months of mostly left temporal headache and scalp sensitivity.? Gets sharp pain, then dull ache.? This was very reminiscent of onset of GCA years ago.? Also developed proximal symptoms with more than 1 hour of morning stiffness around hips and shoulder.? This too is very reminiscent of symptoms weight back at onset of her disease.? With recurring symptoms I thought we should consider adding Actemra and we went through the prior authorization process.? However she has been able to rapidly taper her prednisone to current 5 mg daily with full resolution of symptoms Osteoporosis Had DEXA scan.? Hip-2.6.? Prior treatment with Fosamax for 2-3 years when on high doses of prednisone.? No Fosamax since 2010.?? Restart alendronate with ask 2018? She had successful ankle replacement.? Fully active Current Rheumatology Medication(s): Prednisone 5 mg Hydroxychloroquine 200 mg daily [facility] Medical History Tendinitis Osteochondropathy Osteoporosis Polymyalgia rheumatica Degenerative joint disease of ankle Inflammatory polyarthropathy Rheumatoid arthritis Asthma Giant cell arteritis Iatrogenic adrenal insufficiency Surgical History History of ankle surgery Hx of appendectomy Hx of tubal ligation Hx of cholecystectomy H/O shoulder replacement History of bunionectomy Family History Mother Chronic obstructive lung disease, type A Father H/O failure to thrive syndrome Social History Household Members: Spouse Alcohol intake: current Alcohol intake frequency: a few times a month Patient Tobacco Use Status: Never used Tobacco Current occupational status: 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Const Details: Review of Systems Constitutional: Denies fever, chills, weight loss ENT: Denies vision changes, eye pain or eye redness, dental caries, dry mouth GI: Denies nausea, vomiting, diarrhea, abdominal pain, change in BM Pulm: Denies SOB, DOW, hemoptysis, wheezing Cards: Denies chest pain, palpitations Skin: Denies Raynaud's, rash, nail changes, photosensitivity, HOUSEKEEPER AND LAUNDRY ASSISTANT: Denies headaches, weakness, paresthesias, recurrent falls MSK: as per HPI All other systems reviewed and are unremarkable except noted above Physical Exam Vital Signs: Last Vital Signs Pulse 64 11/21/24 11:15 BP 134/80 11/21/24 11:15 Pulse Ox 98 11/21/24 11:15 Oxygen Delivery Method Room Air 11/21/24 11:15 BMI result Body Mass Index 31.4 Vital signs reviewed Physical Examination CONSTITUITIONAL Patient alert and cooperative. Well appearing and in no apparent painful distress HEENT Conjunctiva and sclera clear. ?Pupils equal round and reactive to light. ?No lymphadenopathy. ? CHEST/RESPIRATORY SYSTEM Normal respiratory effort and able to speak in complete sentences. ?Clear to auscultation bilaterally. ?No crackles, rales, rhonchi, wheezes heard. CARDIAC SYSTEM Regular rate and rhythm. ?S1 and S2 heard no murmurs. ?Radial pulses intact bilaterally MSK Hands: ?Able to make a fist. No synovitis noted to the MCPs, PIPs or DIPs. ?No tenderness to palpation of these joints. Herbeden's node Wrists: ?Full range of motion at the wrists without pain. ?No tenderness to palpation or synovitis noted to the wrists. Elbows: Full range of motion without pain. No tenderness, weakness, swelling, increased warmth or erythema. Shoulders: Full range of active range of motion without pain. No tenderness, weakness, swelling, increased warmth or erythema. Knees: ?Full range of motion. ?No tenderness, swelling, increased warmth or erythema.?No effusion or crepitations Ankles: Full range of motion. ?No tenderness, swelling, increased warmth or erythema.? Feet: ?Negative squeeze test. ?No tenderness to palpation or swelling of the MTPs. Tender points:?No tenderness to palpation of the bilateral trapezius, supraspinatus, greater trochanters, anterior costochondral junctions, bilateral gluteal areas, bilateral suboccipital muscle insertions SKIN Skin intact without rashes. Results Reviewed Results Reviewed: No recent labs seen DEXA 01/2024 AP spine 0.9 Total hip -1.0 Femoral neck -2.1 3rd forearm -1.0 Assessment & Plan Assessment & Plan (1) Polymyalgia rheumatica: Code(s): M35.3 - Polymyalgia rheumatica Category: Medical Plan: #PMR Patient is a 84-year-old female with PMR and non biopsy-proven GCA here today for follow up. Patient is currently in remission with no evidence of GCA or PMR. We will decrease prednisone to 4 mg today with plans to slowly decrease prednisone over the next several months Plan - Decrease prednisone to 4mg daily - Continue plaquenil 200mg daily - Labs today: CBC, CMP, ESR, CRP - RTC 4 months (2) Osteoporosis: Comment: Had DEXA scan.? Hip-2.6.? Prior treatment with Fosamax for 2-3 years when on high doses of prednisone.? No Fosamax since 2010.?? Restart alendronate with ask 2018? She had successful ankle replacement.? Fully active Code(s): M81.0 - Age-related osteoporosis without current pathological fracture Category: Medical Qualifiers: Osteoporosis type: age-related Presence of current pathological fracture: without current pathological fracture Qualified Code(s): M81.0 - Age- related osteoporosis without current pathological fracture Plan: #Osteoporosis Patient with osteoporosis previously on Fosamax now on drug holiday. Last bone density done January 2024 with mild osteopenia of the femoral neck but this is improved from previous. We will continue to monitor her off alendronate. Vitamin-D supplementation Plan - Vitamin D supplementation - DEXA 01/2026 (3) Long-term use of hydroxychloroquine: Comment: Eye exam 06/2023 Code(s): Z79.899 - Other parts counterman (current) drug therapy Category: Medical Plan: #Long-term Use of Hydroxychloroquine Discussed with patient the risks and benefits of hydroxychloroquine in managing the rheumatic condition Benefits include: - Reduced pain, reduce mortality, maintenance of remission and reduction of flares Risks include: - GI upset, skin hyperpigmentation, retinal toxicity (especially after more than 5 years of use), myopathy Advised yearly ophthalmology visits (4) senior care (current) use of systemic steroids: Code(s): Z79.52 - oil heaterman (current) use of systemic steroids Plan: #Long-term Use of Steroids Discussed with patient the risks and benefits of steroid for managing the rheumatic condition Benefits include: - Reduced pain, improved mobility, increased participation in activities, and decreased progression of disease Risks include: - GI upset, potential ultrasound worsening or formation (especially in patients > 65 years old), elevated blood pressure/worsening hypertension, elevated blood sugar/worsening diabetes control, worsening of bone density, elevated lipids/worsening triglycerides, cataract formation, weight gain Recommended using proton pump inhibitors (PPIs) for the duration of steroid use to reduce the risk of gastric ulcers and vitamin-D daily to reduce the risk of osteoporosis Labs checked: ?A1c, T spot, hepatitis-B and C serologies Pneumocystis jiroveci prophylaxis: ?Patient with risk factors including steroids greater than 50 mg for more than 30 days, age greater than 60 years, and lung involvement from underlying rheumatic disease requires prophylaxis and will be given so Plan I spent 32 minutes reviewing the record and labs, taking a history, examining the patient, discussing the treatment plan, ordering diagnostic work up and documenting in the medical record Orders: Orders Comprehensive Met. Panel Today M35.3 - Polymyalgia rheumatica Erythrocyte Sedimentation Rate Today M35.3 - Polymyalgia rheumatica Complete Blood Count Auto Diff Today M35.3 - Polymyalgia rheumatica C Reactive Protein Today M35.3 - Polymyalgia rheumatica Vitamin D 25-OH (D2 and D3) Today E55.9 - Vitamin D deficiency, unspecified, M35.3 - Polymyalgia rheumatica Medications: New prednisone 4 mg (4 x 1 mg) PO DAILY 360 tabs 1RF 90 days M35.3 - Polymyalgia rheumatica Coding Level of Care Code Est Pt Level 4 (96822) Complex EM visit Add On G2211 Diagnoses Polymyalgia rheumatica M35.3 Age-related osteoporosis without current pathological fracture M81.0 Osteoporosis type: age-related Presence of current pathological fracture: without current pathological fracture Long-term use of hydroxychloroquine Z79.899 senior care (current) use of systemic steroids Z79.52
[2024-11-21 11:15] VITALS: BP 134/80; PULSE 64; O2SAT 98; BMI 31.4
--- OUTSIDE RECORDS SUMMARY | 2024-11-21 12:47 | XMS_ITS | Clinical Summary ---
Author Organization [facility] Address [address] [place] [id number] Care Team Providers Care Technician Submarine Cable Equipment Name Role Phone Poppy Gonzalez MD Primary Care Provider + [phone] Allergies Active Allergy Reactions Criticality Noted Date Comments Morphine Other (See Comments) High 08/30/2016 Hallucinations Penicillins Hives,Rash/Dermatiti s,Shortne ss Of Breath High 06/07/2013 Laryngeal edema Streptomycin Rash/Dermatitis Low 06/07/2013 Medications methylPREDNISolone (MEDROL DOSEPAK) 4 MG tabletIndications: Lumbar radiculopathy follow package directions 21 tablet 3 Active tiZANidine (ZANAFLEX) 2 MG tabletIndications: Radiculopathy, lumbosacral region TAKE 1 TABLET BY MOUTH TWICE A DAY NEEDED 180 tablet 1 4 Active oxyCODONE (ROXICODONE) 5 MG immediate release tabletIndications: Primary osteoarthritis of right knee Take 0.5 tablets (2.5 mg total) by mouth daily as needed for severe pain. This is a 1 week supply. Max Daily Amount: 2.5 mg 5 tablet 4 Active Active Problems No known active problems Encounters Date Type Department Care Team Description 10/15/2024 [facility] [address] [address] Garth Hernandez APRN Radiculopathy, lumbosacral region 09/02/2024 [facility] [address] [address] Garth Hernandez APRN Radiculopathy, lumbosacral region from Last 3 Months Social History Tobacco Use Types Packs/Day Years Used Date Smoking Tobacco: Never Assessed Comments Unknown Sex and Gender Information Value Date Recorded Sex Assigned at Choose not to disclose 07/2022 3:10 PM EDT Legal Sex Female 10:14 AM EDT Gender Identity Choose not to disclose 3:10 PM EDT Sexual Orientation Choose not to disclose 2022 3:10 PM EDT Plan of Treatment Health Maintenance Due Date Last Done Comments DTaP/Tdap/Td Vaccines (1 - Tdap) 1957 Pneumococcal Vaccines 50+ (1 of 1 - PCV) 1988 Zoster (Shingles) Vaccine (1 of 2) 1988 DXA Bone Density (Females,Ag es 65 and older) 2003 RSV Vaccine 60 years and old er and Patients (1 - 1-dose 75+ series) 2013 Influenza Vaccine 02/29/2024 COVID-19 Vaccine ( - 2023-2 5 season) 2024 Hepatitis B Vaccines Aged Out No long er eligible based on patient's age to complete this topic Insurance MEDICARE PART A & B Care Teams Technician Submarine Cable Equipment Relationship Specialty Start Date End Date Poppy Gonzalez MD [address] [place] [phone] PCP - General Family Medicine 01/18/23
--- OUTSIDE RECORDS SUMMARY | 2024-11-21 12:47 | XMS_ITS | Encounter Summary ---
Author Organization [facility] Address [address] [place] [address] Care Team Providers Care Blanching Machine Operator Name Role Phone Poppy Gonzalez MD Primary Care Provider + [phone] Encounter Details Date Type Department Care Team (Late st Contact Info) Description 09/27/2023 Scanned Document [facility] [address] [place] [address] Garth Hernandez APRN [address] [facility] [address] [place] [address] Social History Tobacco Use Types Packs/Day Years Used Date Smoking Tobacco: Never Assessed Comments Unknown Sex and Gender Information Value Date Recorded Sex Assigned at Choose not to disclose 07/2022 3:10 PM EDT Legal Sex Female 10:14 AM EDT Gender Identity Choose not to disclose 3:10 PM EDT Sexual Orientation Choose not to disclose 2022 3:10 PM EDT documented as of this encounter Plan of Treatment Not on file documented as of this encounter Visit Diagnoses Not on filedocumented in this encounter Care Teams Blanching Machine Operator Relationship Specialty Start Date End Date Poppy Gonzalez MD [address] [place] [id number] PCP - General Family Medicine 01/18/23 documented as of this encounter
== END 2024-11-21 12:01 | disposition home or self-care (01) ==
LOC: HO.RHE 10:52
PROVIDERS: PCP Family Medicine; Visit Provider Student in an Organized Health Care Education/Training Program
DX: M35.3 Polymyalgia rheumatica (principal); M81.0 Age-related osteoporosis without current pathological fracture; Z79.899 Other long term (current) drug therapy; Z79.52 Long term (current) use of systemic steroids
CPT/HCPCS: 99214; G2211

== ENCOUNTER → 2024-11-21 10:52 | Outpatient (BNVA) | payer MEDICARE, OTHER, SELFPAY | PROVIDERS: PCP Family Medicine; Visit Provider Student in an Organized Health Care Education/Training Program | DX: M35.3 Polymyalgia rheumatica (principal); M81.0 Age-related osteoporosis without current pathological fracture; Z79.899 Other long term (current) drug therapy; Z79.52 Long term (current) use of systemic steroids | CPT/HCPCS: 99212 ==